=== PATIENT | female | born 1930 ===

== ENCOUNTER → 2017-12-19 | Outpatient (CLI) | payer OTHER, BC ==
[~2017-12-19] MED LIST: CEPH500C2 PO; DTRSR/2 PO; FURO20TA PO; IMD/2 PO; METO25TA4 PO; MULT-190 PO; POTA20TA16 PO; RIVA1TAB4 PO; TYLC/3 PO
== END | disposition home or self-care (01) ==
LOC: C.LABVPSUW 10:52
PROVIDERS: ATTEND Internal Medicine Critical Care Medicine
DX: R30.0 Dysuria (principal)